=== PATIENT | male | born 1990 | race Two or more races ===

== ENCOUNTER 2022-07-15 18:19 | Emergency (ER) | payer MEDICAID ==
[~2022-07-15] VITALS: Ht 180.3 cm; Wt 81.6 kg
[2022-07-15 19:28] VITALS: BP 144/108
--- NOTE | 2022-07-15 19:43 | NUR ---
COVID AND FLU SWABS COLLECTED AND SENT TO LAB
--- NOTE | 2022-07-15 23:13 | NUR ---
Patient discharged to home in stable condition. Written and verbal after care instructions given. Patient verbalizes understanding of instruction. Pt ambulatory with a steady gait
== END 2022-07-15 23:13 | disposition home or self-care (01) ==
LOC: ER 18:43
DX: J06.9 Acute upper respiratory infection, unspecified (principal); B97.89 Other viral agents as the cause of diseases classified elsewhere; Z20.822 Contact with and (suspected) exposure to COVID-19
CPT/HCPCS: 99284; 71045; 87426; 87804; C9803